=== PATIENT | female | born 1970 | race Caucasian/White ===

== ENCOUNTER 2023-09-08 10:52 | Emergency (ER) | payer BC ==
[2023-09-08 11:53] LABS: Absolute Basophils 0.1 K/uL (0-0.5); Absolute Lymphocytes (CBC) 1.9 K/uL (0.7-4.9); Absolute Monocytes 0.6 K/uL (0.1-1.3); Absolute Neutrophil 4.8 K/uL (1.8-8.0); Basophils % 0.9 % (0-1.3); Eosinophils % 0.6 % (0-4.4); Hematocrit 42.8 % (36.0-45.0); Hemoglobin 14.3 g/dL (12.0-15.0); Lymphocytes % 25.1 % (15.3-44.8); MCH 30.3 pg (27.0-35.0); MCHC 33.5 g/dL (32.0-36.0); MCV 90.4 fL (80-100); MPV 9.5 fL (7.6-11.3); Monocytes % 8.5 % (3.3-12.3); Neutrophils % 64.9 % (41.7-73.7); Platelets 184 thou/uL (152-406); RBC Red Blood Cell Count 4.73 M/uL (3.86-4.86); Red Cell Distribution Width 14.2 % (12.1-15.2)
[2023-09-08 12:15] LABS: Albumin 3.2 g/dL (3.4-5.0); Anion Gap 6.8 mEq/L (5.0-15.0); Bilirubin Direct 0.4 mg/dL (0-0.2); Bilirubin Indirect, Calculated 1.5 mg/dL (0.2-0.8); Bilirubin Total 1.9 mg/dL (0.2-1.0); Globulin 3.3 g/dL (2.3-3.5); Magnesium 2.1 mg/dL (1.6-2.4); Potassium 3.8 mEq/L (3.5-5.1); Protein, Total 6.5 g/dL (6.4-8.2); Troponin High Sensitivity 3.2 pg/mL (<58.9)
--- NOTE | 2023-09-08 12:28 | RAD REPORT ---
EXAM DESCRIPTION: CT - Head Brain Wo Cont - 09/08/2023 12:05 pm CLINICAL HISTORY: Dizziness;Headache COMPARISON: No comparisons TECHNIQUE: Noncontrast head CT images were obtained without IV contrast. Multiplanar reformats were generated and reviewed. All CT scans are performed using dose optimization technique as appropriate and may include automated exposure control or mA/KV adjustment according to patient size. FINDINGS: No intracranial hemorrhage, mass, or edema. Midline structures are unremarkable. Normal ventricular caliber for age. Hoyt-white matter differentiation is preserved, without evidence of acute infarct. No abnormal extra- axial fluid collections. Mastoid air cells and visualized portions of the paranasal sinuses are clear. No acute bony findings. IMPRESSION: No evidence of an acute intracranial process.
--- NOTE | 2023-09-08 13:51 | RAD REPORT ---
EXAM DESCRIPTION: Rafael Single View09/08/2023 12:25 pm CLINICAL HISTORY: PAIN COMPARISON: No comparisons TECHNIQUE: Portable AP view of the chest. FINDINGS: The lungs are clear. No pneumothorax or effusion. The cardiomediastinal contours are unre markable. IMPRESSION: No acute cardiopulmonary process.
--- NOTE | 2023-09-08 15:00 | ER ---
Nurse's Notes [facility] Name: Mariela Morris Age: 52 yrs Sex: Female : 1970 Arrival Date: 09/08/2023 Time: 10:52 Bed 6 Private MD: Diagnosis: Essential (primary) hypertension;Dizziness and giddiness Presentation: 09/07 10:58 Chief complaint: Patient states: 'I've been having high BP for the past 2 days. It's mb9 been 162/117. I've been dizzy, lightheaded, ringing in the ears, and i feel off.". Coronavirus screen: Vaccine status: Patient reports being unvaccinated. Ebola Screen: No symptoms or risks identified at this time. Initial Sepsis Screen: Does the patient meet any 2 criteria? No. Patient's initial sepsis screen is negative. Does the patient have a suspected source of infection? No. Patient's initial sepsis screen is negative. Risk Assessment: Do you want to hurt yourself or someone else? Patient reports no desire to harm self or others. Onset of symptoms was September 08, 2023. 10:58 Method Of Arrival: Ambulatory mb9 10:58 Acuity: ADRIANA 3 mb9 Triage Assessment: 11:02 General: Appears in no apparent distress. Behavior is calm, cooperative. Pain: Denies mb9 pain. EENT: No signs and/or symptoms were reported regarding the EENT system. Neuro: Moses Agitation-Sedation Scale (RASS): 0 - Alert and Calm Level of Consciousness is awake, alert, obeys commands, Oriented to person, place, time, situation, Appropriate for age Reports dizziness. Cardiovascular: Heart tones S1 S2 present Patient's skin is warm and dry. Respiratory: Reports shortness of breath Airway is patent Respiratory effort is even, unlabored, Respiratory pattern is regular, symmetrical. GI: No signs and/or symptoms were reported involving the gastrointestinal system. : No signs and/or symptoms were reported regarding the genitourinary system. Derm: Skin is pink, warm \\T\\ dry. Musculoskeletal: Range of motion: intact in all extremities. Historical: - Allergies: 11:00 PENICILLINS; mb9 11:00 mycins; mb9 - PMHx: 11:00 Hypertensive disorder; ortrhostatic hypotension; sandoval's esophagus; mb9 - PSHx: 11:00 Bilateral knee replacement; mb9 - Immunization history:: Adult Immunizations up to date. - Infectious Disease History:: Denies. - Social history:: Smoking status: Patient denies any tobacco usage or history of. Screenin:23 [facility] ED Fall Risk Assessment (Adult) History of falling in the last 3 months, ph including since admission No falls in past 3 months (0 pts) Confusion or Disorientation No (0 pts) Intoxicated or Sedated No (0 pts) Impaired Gait No (0 pts) Mobility Assist Device Used No (0 pt) Altered Elimination No (0 pt) Score/Fall Risk Level 0 - 2 = Low Risk Oriented to surroundings, Maintained a safe environment, Hourly rounding (assess needs \\T\\ fall precautionary measures) done. Abuse screen: Denies threats or abuse. Denies injuries from another. Nutritional screening: No deficits noted. Tuberculosis screening: No symptoms or risk factors identified. Assessment: 12:23 General: Appears in no apparent distress. comfortable, Behavior is calm, cooperative, ph appropriate for age. Pain: Denies pain. Neuro: Level of Consciousness is awake, alert, obeys commands, Oriented to person, place, time, situation. Neuro: Reports dizziness. Cardiovascular: Capillary refill < 3 seconds in bilateral fingers Patient's skin is warm and dry. Respiratory: Airway is patent Respiratory effort is even, unlabored. Derm: Skin is pink, warm \\T\\ dry. 15:32 Reassessment: Patient appears in no apparent distress at this time. Patient and/or ph family updated on plan of care and expected duration. Pain level reassessed. Patient is alert, oriented x 3, equal unlabored respirations, skin warm/dry/pink. Vital Signs: 10:58 BP 160 / 82; Pulse 91; Resp 18; Temp 98.2; Pulse Ox 100% on R/A; Weight 94.8 kg; Height mb9 5 ft. 6 in. ; Pain 0/10; 12:24 BP 135 / 95; Pulse 70; Resp 18; Pulse Ox 99% on R/A; ph 13:50 BP 126 / 81; Pulse 68; Resp 16; Pulse Ox 100% ; ko1 15:00 BP 125 / 95; Pulse 70; Resp 18; Temp 97.8; Pulse Ox 99% ; ph 10:58 Body Mass Index 33.73 (94.80 kg, 167.64 cm) mb9 10:58 Pain Scale: Adult mb9 ED Course: 10:54 Patient arrived in ED. rg4 10:54 Scott Gómez MD is Attending Physician. jazzy 10:58 Arm band placed on. mb9 11:00 Triage completed. mb9 11:15 Savanna Sow, RN is Primary Nurse. ph 11:20 EKG done, by ED staff, reviewed by Scott Gómez MD. bc6 11:34 CT Head Brain wo Cont In Process Unspecified. EDMS 11:48 Basic Metabolic Panel Sent. ko1 11:48 CBC with Diff Sent. ko1 11:48 LFT's Sent. ko1 11:49 Magnesium Sent. ko1 11:49 NT PRO-BNP Sent. ko1 11:49 Troponin HS Sent. ko1 12:24 Patient has correct armband on for positive identification. Bed in low position. Call ph light in reach. Side rails up X 1. Client placed on continuous cardiac and pulse oximetry monitoring. NIBP monitoring applied. pvc monitor on. 12:27 XRAY Chest (1 view) In Process Unspecified. EDMS 13:50 Provided Education on: call light, labs. Door closed. Noise minimized. Lights dimmed. ko1 Warm blanket given. Pillow given. 13:50 No provider procedures requiring assistance completed. ko1 15:00 Aurelio Oconnell MD is Referral Physician. jazzy 15:34 IV discontinued, intact, bleeding controlled, No redness/swelling at site. Pressure ph dressing applied. Administered Medications: 11:50 Drug: NS 0.9% IV 1000 ml IV at 125 ml/hr continuous Route: IV; Rate: 125 ml/hr; Site: ko1 right antecubital; 13:00 Follow up: Response: No adverse reaction; IV Status: Completed infusion ph 15:07 Drug: Lisinopril PO 20 mg PO once Route: PO; ko1 18:44 Follow up: Response: No adverse reaction ph 15:07 Drug: ToPROL XL PO 50 mg PO once Route: PO; ko1 18:44 Follow up: Response: No adverse reaction ph Medication: 12:24 VIS not applicable for this client. ph Outcome: 15:00 Discharge ordered by . jazzy 15:33 Discharged to home ambulatory, with family, ph 15:33 Condition: good 15:33 Discharge instructions given to patient, family, Instructed on discharge instructions, follow up and referral plans. medication usage, Demonstrated understanding of instructions, follow-up care, medications, Prescriptions given X 2, 15:34 Patient left the ED. ph Signatures: Dispatcher [employer] EDMS Scott Gómez MD MD cha Hall, Patricia, RN RN jozef Connor, April rg4 Leticia Mcdonough RN RN ko1 Urszula Guzmán RN RN mb9 Ruth Tovar 6
--- NOTE | 2023-09-08 15:00 | EDPHYS ---
Physician Documentation [facility] Name: Mariela Morris Age: 52 yrs Sex: Female : 1970 Arrival Date: 09/08/2023 Time: 10:52 Bed 6 Private MD: ED Physician Scott Gómez HPI: 09/07 14:52 This 52 yrs old Female presents to ER via Ambulatory with complaints of High jazzy Blood Pressure, Dizziness. 14:52 The patient has elevated blood pressure and discovered this at home. Onset: The jazzy symptoms/episode began/occurred 2 day(s) ago. Historical: - Allergies: 11:00 PENICILLINS; mb9 11:00 mycins; mb9 - PMHx: 11:00 Hypertensive disorder; ortrhostatic hypotension; sandoval's esophagus; mb9 - PSHx: 11:00 Bilateral knee replacement; mb9 - Immunization history:: Adult Immunizations up to date. - Infectious Disease History:: Denies. - Social history:: Smoking status: Patient denies any tobacco usage or history of. ROS: 14:53 Constitutional: Negative for fever, chills, and weight loss, Eyes: Negative for injury, jazzy pain, redness, and discharge, ENT: Negative for injury, pain, and discharge, Neck: Negative for injury, pain, and swelling, Cardiovascular: Negative for chest pain, palpitations, and edema, Respiratory: Negative for shortness of breath, cough, wheezing, and pleuritic chest pain, Abdomen/GI: Negative for abdominal pain, nausea, vomiting, diarrhea, and constipation, Back: Negative for injury and pain, : Negative for injury, bleeding, discharge, and swelling, MS/Extremity: Negative for injury and deformity, Skin: Negative for injury, rash, and discoloration, Psych: Negative for depression, anxiety, suicide ideation, homicidal ideation, and hallucinations, Allergy/Immunology: Negative for hives, rash, and allergies, Endocrine: Negative for neck swelling, polydipsia, polyuria, polyphagia, and marked weight changes, Hematologic/Lymphatic: Negative for swollen nodes, abnormal bleeding, and unusual bruising, 14:53 Neuro: Positive for dizziness, headache, weakness, Exam: 14:53 Constitutional: This is a well developed, well nourished patient who is awake, alert, jazzy and in no acute distress. Head/Face: Normocephalic, atraumatic. Eyes: Pupils equal round and reactive to light, extra-ocular motions intact. Lids and lashes normal. Conjunctiva and sclera are non-icteric and not injected. Cornea within normal limits. Periorbital areas with no swelling, redness, or edema. ENT: Nares patent. No nasal discharge, no septal abnormalities noted. Tympanic membranes are normal and external auditory canals are clear. Oropharynx with no redness, swelling, or masses, exudates, or evidence of obstruction, uvula midline. Mucous membranes moist. Neck: Trachea midline, no thyromegaly or masses palpated, and no cervical lymphadenopathy. Supple, full range of motion without nuchal rigidity, or vertebral point tenderness. No Meningismus. Chest/axilla: Normal chest wall appearance and motion. Nontender with no deformity. No lesions are appreciated. Cardiovascular: Regular rate and rhythm with a normal S1 and S2. No gallops, murmurs, or rubs. Normal PMI, no JVD. No pulse deficits. Respiratory: Lungs have equal breath sounds bilaterally, clear to auscultation and percussion. No rales, rhonchi or wheezes noted. No increased work of breathing, no retractions or nasal flaring. Abdomen/GI: Soft, non-tender, with normal bowel sounds. No distension or tympany. No guarding or rebound. No evidence of tenderness throughout. Back: No spinal tenderness. No costovertebral tenderness. Full range of motion. Skin: Warm, dry with normal turgor. Normal color with no rashes, no lesions, and no evidence of cellulitis. MS/ Extremity: Pulses equal, no cyanosis. Neurovascular intact. Full, normal range of motion. Neuro: Awake and alert, GCS 15, oriented to person, place, time, and situation. Cranial nerves II-XII grossly intact. Motor strength 5/5 in all extremities. Sensory grossly intact. Cerebellar exam normal. Normal gait. Psych: Awake, alert, with orientation to person, place and time. Behavior, mood, and affect are within normal limits. 14:53 ECG was reviewed by the Attending Physician. Vital Signs: 10:58 BP 160 / 82; Pulse 91; Resp 18; Temp 98.2; Pulse Ox 100% on R/A; Weight 94.8 kg; Height mb9 5 ft. 6 in. ; Pain 0/10; 12:24 BP 135 / 95; Pulse 70; Resp 18; Pulse Ox 99% on R/A; ph 13:50 BP 126 / 81; Pulse 68; Resp 16; Pulse Ox 100% ; ko1 15:00 BP 125 / 95; Pulse 70; Resp 18; Temp 97.8; Pulse Ox 99% ; ph 10:58 Body Mass Index 33.73 (94.80 kg, 167.64 cm) mb9 10:58 Pain Scale: Adult mb9 MDM: 10:54 Patient medically screened. jazzy 14:55 Differential diagnosis: hypertensive crisis, Malignant HTN, intracerebral hemorrhage. [facility] Data reviewed: vital signs, nurses notes, lab test result(s), EKG, radiologic studies. Consideration of Admission/Observation Escalation of care including admission/observation considered. I considered the following discharge prescriptions or medication management in the emergency department Medications were administered in the Emergency Department. See MAR. Independent interpretation of the following test(s) in the Emergency Department EKG: See my EKG interpretation above. Test considered but Not performed: Ultrasound NO 2 D ECHO. Historians other than the Patient: Daughter/Son: DAUGHTER WELL INFORMED. Care significantly affected by the following chronic conditions: Hypertension, Obesity, ORTHOSTATIC HYPO, SANDOVAL ESO. Counseling: I had a detailed discussion with the patient and/or guardian regarding the historical points, exam findings, and any diagnostic results supporting the discharge/admit diagnosis, lab results, radiology results, the need for outpatient follow up, for definitive care, a burial agent, a family practitioner. 09/07 11:17 Order name: Basic Metabolic Panel; Complete Time: 14:42 [facility] 09/07 11:17 Order name: CBC with Diff; Complete Time: 14:42 [facility] 09/07 11:17 Order name: LFT's; Complete Time: 14:42 [facility] 09/07 11:17 Order name: Magnesium; Complete Time: 14:42 [facility] 09/07 11:17 Order name: NT PRO-BNP; Complete Time: 14:42 [facility] 09/07 11:17 Order name: Troponin HS; Complete Time: 14:42 [facility] 09/07 11:17 Order name: XRAY Chest (1 view); Complete Time: 14:42 [facility] 09/07 11:17 Order name: CT Head Brain wo Cont; Complete Time: 14:42 [facility] 09/07 11:17 Order name: Cardiac monitoring; Complete Time: :22 [facility] 09/07 11:17 Order name: EKG - Nurse/Tech; Complete Time: 11:20 [facility] 09/07 11:17 Order name: IV Saline Lock; Complete Time: :48 [facility] 09/07 11:17 Order name: Labs collected and sent; Complete Time: 11:48 [facility] 09/07 11:17 Order name: O2 Per Protocol; Complete Time: [facility] 09/07 11:17 Order name: O2 Sat Monitoring; Complete Time: : [facility] EC:53 Rate is 73 beats/min. Rhythm is regular. QRS [place] is Normal. DE interval is normal. QRS jazzy interval is normal. QT interval is normal. No Q waves. T waves are Normal. No ST changes noted. Clinical impression: NSR w/ Non-specific ST/T Changes and No evidence of ischemia. Interpreted by me. Reviewed by me. Administered Medications: 11:50 Drug: NS 0.9% IV 1000 ml IV at 125 ml/hr continuous Route: IV; Rate: 125 ml/hr; Site: [facility] right antecubital; 13:00 Follow up: Response: No adverse reaction; IV Status: Completed infusion ph 15:07 Drug: Lisinopril PO 20 mg PO once Route: PO; ko1 18:44 Follow up: Response: No adverse reaction ph 15:07 Drug: ToPROL XL PO 50 mg PO once Route: PO; ko1 18:44 Follow up: Response: No adverse reaction ph Disposition Summary: 09/08/23 15:00 Discharge Ordered Notes: Location: Home jazzy Problem: new jazzy Symptoms: have improved jazzy Condition: Stable jazzy Diagnosis - Essential (primary) hypertension jazzy - Dizziness and giddiness jazzy Followup: jazzy - With: Private Physician - When: 2 - 3 days - Reason: Recheck today's complaints, Continuance of care, Re-evaluation by your physician Followup: jazzy - With: Aurelio Oconnell MD - When: 2 - 3 days - Reason: Recheck today's complaints, Re-evaluation by your physician Discharge Instructions: - Discharge Summary Sheet jazzy - Hypertension, Adult jazzy - Hypertension, Adult, [id number] jazzy - How to Take Your Blood Pressure, [id number] jazzy - Aspirin and Your Heart jazzy - Dizziness, [id number]-di-[id number] jazzy - Managing Your Hypertension jazzy Forms: - Medication Reconciliation Form jazzy - Antibiotic Education jazzy - Prescription Opioid Use jazzy - Patient Portal Instructions jazzy - Leadership Thank You Letter jazzy - Work release form ph Prescriptions: - Toprol XL 25 mg Oral Tablet - take 1 tablet ORAL route once daily; 20 tablet; Refills: 0, Product Selection jazzy Permitted - Lisinopril 10 mg Oral Tablet - take 1 tablet ORAL route once daily; 20 tablet; Refills: 0, Product Selection jazzy Permitted Signatures: Dispatcher [employer] EDMS Scott Gómez MD MD cha Oliver, Kathy, RN RN ko1 Urszula Guzmán RN RN mb9 Savanna Sow RN ph Corrections: (The following items were deleted from the chart) 11:17 11:17 Chest Single View+RAD.RAD.BRZ ordered. EDMS EDMS 11:18 11:18 Head Brain Wo Cont+CT.RAD.BRZ ordered. EDMS EDMS
[2023-09-08] MEDS ORDERED: METOPROLOL XL 50 MG TAB PO ONE (15:06)
[2023-09-08] MEDS ORDERED: lisinopriL 20 MG TAB ONE (15:06)
[2023-09-08 15:44] VITALS: BP 125/95; TEMP 97.8; O2SAT 99
--- NOTE | 2023-09-09 13:53 | EKG ---
Test Date: 2023-09-08 Test Time: 11:17:00 Horizontal Boring Mill Operator: KATTY MEASUREMENT RESULTS: Intervals: Rate: 73 RI: 168 QRSD: 86 QT: 364 QTc: 401 [place]: P: 72 RI: 168 QRS: 12 T: 47 INTERPRETIVE STATEMENTS: Normal sinus rhythm Nonspecific ST abnormality Abnormal ECG No previous ECG available for comparison Electronically Signed On 09-09-23 13:49:16 CDT by Aurelio Oconnell
== END 2023-09-08 15:34 | disposition home or self-care (01) ==
LOC: ER 10:52
DX: I10 Essential (primary) hypertension (principal); R42 Dizziness and giddiness
CPT/HCPCS: 36415; 70450; 71045; 80048; 80076; 83735; 83880; 84484; 85025; 93005